=== PATIENT | female | born 1985 | race African-American/Black ===

== ENCOUNTER 2021-01-02 08:46 | Emergency (ER) | payer SELFPAY ==
--- OUTSIDE RECORDS SUMMARY | 2021-01-02 08:49 | XMS REPORT | Continuity of Care Document ---
:1985 Author Organization [facility] t Address [address] [place] [address] Care Team Providers Name Role Phone Cindy RANDOLPH S Attending Clinician Problems This patient has no known problems. Allergies, Adverse Reactions, Alerts This patient has no known allergies or adverse reactions. Medications This patient has no known medications. Procedures This patient has no known procedures. Encounters Start End Encounter Admission Attending Care Care Encounter Source Date/Time Date/Time Type Type Clinicians Facility Department ID 2020-05-20 2020-05-20 Emergency [facility] [id number] 01:49:00 01:51:00 Eladio Reese [id number] [place] [id number] [place] [id number] Results This patient has no known results.
[2021-01-02 09:35] LABS: Urine Blood 2+ (NEG); Urine Glucose NEGATIVE (NEG); Urine Protein TRACE (NEG); Urine Specific Gravity 1.025 (1.005-1.030); Urine pH 6.5 (5.0-7.0)
[2021-01-02] MEDS ORDERED: ALPRAZOLAM 0.5 MG TABLET ONE (10:38)
--- NOTE | 2021-01-02 11:44 | EDPHYS ---
Physician Documentation [facility] Name: Leigh Bryan Age: 35 yrs Sex: Female : 1985 Arrival Date: 01/02/2021 Time: 08:49 Bed 5 Private MD: ED Physician Gonzalez Lemus HPI: 01/02 10:17 This 35 yrs old Black Female presents to ER via Ambulatory with complaints of kb medication refill. 10:25 The patient presents to the emergency department requesting refill(s) for: Xanax, kb Zoloft, ibuprofen, zofran. The patient chronically suffers from bipolar disorder. The patient has experienced similar episodes in the past, chronically. The patient has not recently seen a physician. Pt reports she has been off of her meds for a few weeks and she needs to get back on them. States "my body and mind aren't right because I haven't had my medicine." Pt reports frequent panic attacks lately. Pt also requests a test because she has been sexually active and her vagina is sore. . Historical: - Allergies: 08:55 No Known Allergies; sv - PMHx: 08:55 Bipolar disorder; PTSD; Schizophrenia; sv - PSHx: 08:55 None; sv - Immunization history:: Adult Immunizations up to date. - Social history:: Smoking status: Patient reports the use of cigarette tobacco products, smokes one-half pack cigarettes per day. ROS: 10:30 Constitutional: Negative for fever, chills, and weight loss, Cardiovascular: Negative kb for chest pain, palpitations, and edema, Respiratory: Negative for shortness of breath, cough, wheezing, and pleuritic chest pain, MS/Extremity: Negative for injury and deformity, Skin: Negative for injury, rash, and discoloration, Neuro: Negative for headache, weakness, numbness, tingling, and seizure. 10:30 Abdomen/GI: Positive for nausea, Negative for abdominal pain, vomiting, diarrhea. 10:30 Psych: Positive for anxiety, depression, Negative for auditory hallucinations, visual hallucinations, homicidal ideation, suicide gesture, suicidal ideation. Exam: 10:31 Constitutional: This is a well developed, well nourished patient who is awake, alert, kb and in no acute distress. Head/Face: Normocephalic, atraumatic. Cardiovascular: Regular rate and rhythm with a normal S1 and S2. No gallops, murmurs, or rubs. No pulse deficits. Respiratory: Respirations even and unlabored. No increased work of breathing, no retractions or nasal flaring. Abdomen/GI: Soft, non-tender. No distention Skin: Warm, dry with normal turgor. Normal color. MS/ Extremity: Pulses equal, no cyanosis. Neurovascular intact. Full, normal range of motion. Neuro: Awake and alert, GCS 15, oriented to person, place, time, and situation. Moves all extremities. Normal gait. 10:31 Constitutional: The patient appears anxious. 10:31 Psych: Behavior/mood is cooperative, anxious, Affect is animated, Oriented to person, place, time, Patient has no thoughts/intents to harm self or others. Judgement / Insight is normal. Memory is normal. Delusions/hallucinations are not present. Vital Signs: 08:55 BP 147 / 100; Pulse 65; Resp 16; Temp 98.2; Pulse Ox 100% ; Height 5 ft. 7 in. (170.18 sv cm); MDM: 09:59 Patient medically screened. kb 10:28 Data reviewed: vital signs, nurses notes. Data interpreted: Pulse oximetry: on room air kb is 100 %. Interpretation: normal. Counseling: I had a detailed discussion with the patient and/or guardian regarding: the historical points, exam findings, and any diagnostic results supporting the discharge/admit diagnosis, the need for outpatient follow up, a family practitioner, a psychiatrist, to return to the emergency department if symptoms worsen or persist or if there are any questions or concerns that arise at home. 01/02 09:08 Order name: Urine Dipstick--Ancillary (enter results); Complete Time: 09:49 sv 01/02 09:08 Order name: Urine --Ancillary (enter results); Complete Time: 09:49 sv 01/02 09:03 Order name: Urine Test (obtain specimen); Complete Time: 09:08 kb 01/02 09:03 Order name: Urine Dipstick-Ancillary (obtain specimen); Complete Time: 09:08 kb 01/02 10:17 Order name: Misc. Order: Find out what dose of Zoloft pt normally takes. Pt has used kb [facility], [facility] and [place] in the past; Complete Time: 10:43 Administered Medications: 10:22 Drug: XANax (alprazolam) Tablet 0.5 mg Route: PO; tw2 12:28 Follow up: Response: No adverse reaction tw2 Disposition: 01/03 08:10 Co-signature as Attending Physician, Gonzalez Lemus MD I agree with the assessment and kdr plan of care. Disposition: 01/02/21 11:44 Discharged to Home. Impression: Encounter for issue of repeat prescription. - Condition is Stable. - Discharge Instructions: Medicine Refill at the Emergency Department. - Prescriptions for Xanax 0.5 mg Oral Tablet - take 1 tablet by ORAL route every 8 hours As needed; 6 tablet. Zoloft 50 mg Oral Tablet - take 1 tablet by ORAL route once daily; 20 tablet. - Medication Reconciliation Form, Thank You Letter, Antibiotic Education, Prescription Opioid Use form. - Follow up: Emergency Department; When: As needed; Reason: Worsening of condition. Follow up: Private Physician; When: 2 - 3 days; Reason: Recheck today's complaints, Continuance of care, Re-evaluation by your physician. Follow up: Roberto Waters MD; When: 2 - 3 days; Reason: Recheck today's complaints. Signatures: Dispatcher [employer] EDMS Doris Wilkes, JOSAFAT MERAZ-Juhi Freed, RN RN Gonzalez Richards MD MD [facility] Zara Juan RN RN tw2 Corrections: (The following items were deleted from the chart) 01/02 10:30 10:25 Pt reports she has been off of her meds for a few weeks and she needs to get back kb on them. States "my body and mind aren't right because I haven't had my medicine." Pt reports frequent panic attacks lately. . kb 11:46 11:44 01/02/2021 11:44 Discharged to Home. Impression: Encounter for issue of repeat kb prescription. Condition is Stable. Forms are Medication Reconciliation Form, Thank You Letter, Antibiotic Education, Prescription Opioid Use. Follow up: Emergency Department; When: As needed; Reason: Worsening of condition. Follow up: Private Physician; When: 2 - 3 days; Reason: Recheck today's complaints, Continuance of care, Re-evaluation by your physician. kb 12:29 11:46 01/02/2021 11:44 Discharged to Home. Impression: Encounter for issue of repeat tw2 prescription. Condition is Stable. Discharge Instructions: Medicine Refill at the Emergency Department. Prescriptions for Xanax 0.5 mg Oral Tablet - take 1 tablet by ORAL route every 8 hours As needed; 6 tablet, Zoloft 50 mg Oral Tablet - take 1 tablet by ORAL route once daily; 20 tablet. and Forms are Medication Reconciliation Form, Thank You Letter, Antibiotic Education, Prescription Opioid Use. Follow up: Emergency Department; When: As needed; Reason: Worsening of condition. Follow up: Private Physician; When: 2 - 3 days; Reason: Recheck today's complaints, Continuance of care, Re-evaluation by your physician. Follow up: Roberto Waters; When: 2 - 3 days; Reason: Recheck today's complaints. kb
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
[2021-01-02 12:36] VITALS: BP 147/100; TEMP 98.2; O2SAT 100
== END 2021-01-02 12:29 | disposition home or self-care (01) ==
LOC: ER 08:46
DX: Z76.0 Encounter for issue of repeat prescription (principal)
CPT/HCPCS: 81003; 81025; 99283

== ENCOUNTER 2023-02-26 17:49 | Emergency (ER) | payer OTHER, SELFPAY ==
[2023-02-26] MEDS ORDERED: NA CHLORIDE 0.9% 1,000 ML ONE (18:19)
[2023-02-26 18:32] LABS: Hematocrit 35.3 % (36.0-45.0); MCV 79.4 fL (80-100); RBC Red Blood Cell Count 4.45 M/uL (3.86-4.86)
--- OUTSIDE RECORDS SUMMARY | 2023-02-26 18:43 | XMS REPORT | Continuity of Care Document ---
:1985 Author Organization [facility] t Address [address] [place] [address] [address] [place] [address] Care Team Providers Name Role Phone Pcp, Patient Does Not Have A Primary Care Physician +[id number] JANET KIM Attending Clinician Unavailable Janet Kim MD Attending Clinician Doctor Unassigned, [place] Attending Clinician Unavailable Eladio Gibbs MD Attending Clinician ELADIO GIBBS Attending Clinician Unavailable JANET KIM Admitting Clinician Unavailable Janet Kim MD Admitting Clinician Payers Payer Name Policy Type Policy Number Effective Date Expiration Date Count includes the [facility] [id number] 2023 [facility] STAR 00:00:00 Problems Condition Condition Condition Status Onset Resolution Last Treating Co mments Source Name Details Category Date Date Treatment Clinician Date Disease Active Overview: Un sae delivery delivery 4- Formatt[place] ity of delivered delivered 00:00[place] 00 note Medical might be Branch different from the original. ICD10 Diagnosis Term Track Announcer Utility Disease Active Overview: Un sae delivery delivery 4-04 Formattin ity of delivered delivered 00:00: [place] of this [place] 00 note Medical might be Branch different from the original. ICD10 Diagnosis Term Track Announcer Utility Threatened Threatened Disease Active U nivers premature premature 3-05 ity of labor, labor, 00:00: [place] antepartum antepartum 00 Me dical (644.03) (644.03) Branch Allergies, Adverse Reactions, Alerts Allergy Allergy Status Severity Reaction(s) Onset Inactive Treating Comm ents Source Name Type Date Date Clinician NALBUPHI DRUG Active Rash Univers NE HCL INGREDI 4-03 ity of 00:00: [place] 00 Medical Branch SULFA Drug Active Rash Univers (SULFONA Class 4-03 ity of MIDE 00:00: [place] ANTIBIOT 00 Medical ICS) Branch Sulfa Propensi Active Rash Univers (Sulfona ty to 4-03 ity of mide adverse 00:00: [place] Antibiot reaction 00 Medica l ics) s Branch Nalbuphi Propensi Active Rash Univer s ne Hcl ty to 4-03 ity of adverse 00:00: [place] reaction 00 Medical s Branch Sulfa Propensi Active Rash Univers (Sulfona ty to 4-03 ity of mide adverse 00:00: [place] Antibiot reaction 00 Medica l ics) s Branch Metronid Propensi Active Itching Unive rs azole ty to 3-07 ity of adverse 00:00: [place] reaction 00 Medical s to Branch drug METRONID DRUG Active High Hives Univers AZOLE INGREDI 3-07 ity of 00:00: [place] 00 Medical Branch Social History Social Habit Start Date Stop Date Quantity Comments Source Exposure to Unable to assess Univers ity of SARS-CoV-2 [place] [facility] (event) Branch Sex Ass[birth year] At [birth year] Universit y of 00:00:00 00:00:00 [place] [facility] Smoking Status Start Date Stop Date Source Tobacco smoking consumption [facility] unknown Branch Medications Ordered Filled Start Stop Current Ordering Indication Dosage Frequency Signature Comments Components Source Medication Medication Date Date Medication? Clinician (SIG) Name Name Yes Take one Unive rs VIT-FA ORAL 4-05 tablet by ity of TAB 00:00: mouth 00 daily Medical Branch DOCUSATE Yes Take one Unive rs CALCIUM 240 4-05 capsule by it y of MG ORAL CAP 00:00: mouth daily as Medical needed for Branch constipati on FERROUS Yes Take one Univer s SULFATE 325 4-05 tablet by ity of MG (65 MG 00:00: mouth [place] IRON) ORAL 00 three Medical TAB times Branch daily ACETAMINOPH Yes Take one Un sae EN-CODEINE 4-05 to two ity of 300-30 MG 00:00: [place] ORAL TAB 00 mouth Medical every six Branch hours as needed for pain IBUPROFEN Yes Take one Univ ers 600 MG ORAL 4-05 tablet by ity of TAB 00:00: mouth [place] 00 every six Medical hours as Branch needed for pain Yes Take one Unive rs VIT-FA ORAL 4-05 tablet by ity of TAB 00:00: mouth [place] 00 daily Medical Branch DOCUSATE Yes Take one Unive rs CALCIUM 240 4-05 capsule by it y of MG ORAL CAP 00:00: mouth [place] 00 daily as Medical needed for Branch constipati on FERROUS Yes Take one Univer s SULFATE 325 4-05 tablet by ity of MG (65 MG 00:00: mouth [place] IRON) ORAL 00 three Medical TAB times Branch daily ACETAMINOPH Yes Take one Un sae EN-CODEINE 4-05 to two ity of 300-30 MG 00:00: tablets by [place] ORAL TAB 00 mouth Medical every six Branch hours as needed for pain IBUPROFEN Yes Take one Univ ers 600 MG ORAL 4-05 tablet by ity of TAB 00:00: mouth [place] 00 every six Medical hours as Branch needed for pain Yes Take one Unive rs VIT-FA ORAL 4-05 tablet by ity of TAB 00:00: mouth [place] 00 daily Medical Branch DOCUSATE Yes Take one Unive rs CALCIUM 240 4-05 capsule by it y of MG ORAL CAP 00:00: mouth [place] 00 daily as Medical needed for Branch constipati on FERROUS Yes Take one Univer s SULFATE 325 4-05 tablet by ity of MG (65 MG 00:00: mouth [place] IRON) ORAL 00 three Medical TAB times Branch daily ACETAMINOPH Yes Take one Un sae EN-CODEINE 4-05 to two ity of 300-30 MG 00:00: tablets by [place] ORAL TAB 00 mouth Medical every six Branch hours as needed for pain IBUPROFEN Yes Take one Univ ers 600 MG ORAL 4-05 tablet by ity of TAB 00:00: mouth [place] 00 every six Medical hours as Branch needed for pain Yes Take one Unive rs VIT-FA ORAL 4-05 tablet by ity of TAB 00:00: mouth [place] 00 daily Medical Branch DOCUSATE Yes Take one Unive rs CALCIUM 240 4-05 capsule by it y of MG ORAL CAP 00:00: mouth [place] 00 daily as Medical needed for Branch constipati on FERROUS Yes Take one Univer s SULFATE 325 4-05 tablet by ity of MG (65 MG 00:00: mouth [place] IRON) ORAL 00 three Medical TAB times Branch daily ACETAMINOPH Yes Take one Un sae EN-CODEINE 4-05 to two ity of 300-30 MG 00:00: tablets by [place] ORAL TAB 00 mouth Medical every six Branch hours as needed for pain IBUPROFEN Yes Take one Univ ers 600 MG ORAL 4-05 tablet by ity of TAB 00:00: mouth [place] 00 every six Medical hours as Branch needed for pain Vital Signs Vital Name Observation Time Observation Value Comments Source Systolic blood 2023-02-19 19:45:00 130 mm[Hg] Univer sity of pressure [facility] Diastolic blood 2023-02-19 19:45:00 83 mm[Hg] Unive rsity of pressure [facility] Heart rate 2023-02-19 19:45:00 95 /min [facility] Body temperature 2023-02-19 19:45:00 36.72 Ivon [facility] Respiratory rate 2023-02-19 19:45:00 17 /min [facility] Body height 2023-02-19 19:45:00 170.2 cm [facility] Body weight 2023-02-19 19:45:00 90.719 kg [facility] BMI 2023-02-19 19:45:00 31.32 kg/m2 [facility] Oxygen saturation in 2023-02-19 19:45:00 100 /min [facility] Arterial blood by [facility] Pulse oximetry Branch Procedures Procedure Date / Time Performing Clinician Source Performed AUTHORIZATION FOR 2022-09-04 06:01:00 Doctor Unassigned, No Univ [facility] RELEASE OF PHI Name Medical Branch Encounters Start End Encounter Admission Attending Care Care Encounter Source Date/Time Date/Time Type Type Clinicians Facility Department ID 2023-02-19 2023-02-19 Outpatient P JANET KIM [facility] KISHAN [id number] Univers 14:32:00 17:45:00 ity of [facility] 2023-02-19 2023-02-19 Hospital Janet Kim [facility] [id number] Univers 14:32:00 17:45:00 Encounter Cam [place] [id number] ity of [facility] [id number] [facility] [id number] [place] [id number] [place] 2022-09-04 2022-09-04 Orders Doctor MARÍA [id number] Univers 00:00:00 00:00:00 Only Unassigned, ASHU [id number] [place] [facility] [id number] [place] [id number] [place] [address] Branch 2020-05-20 2020-05-20 Emergency [facility] [id number] Univers 01:49:00 01:51:00 Eladio [place] [id number] ity of [place] [id number] [facility] [id number] [place] [id number] Branch 2020-05-20 2020-05-20 Emergency [facility] [id number] 01:49:00 01:51:00 Eladio S [place] [id number] [place] [id number] [place] [id number] [facility] 2020-05-20 2020-05-20 Emergency X [facility] ERT [id number] Univers 01:32:00 01:32:00 NAYLALI ity of [facility] Results This patient has no known results.
[2023-02-26 18:44] LABS: Specific Gravity > 1.030 (1.005-1.030); Urine Bacteria None Seen /HPF (<20); Urine Bilirubin NEGATIVE (Negative); Urine Blood Negative (Negative); Urine Clarity Turbid (Clear); Urine Color Yellow (Yellow); Urine Glucose NEGATIVE (Negative); Urine Mucus 4+ /HPF (None Seen); Urine Protein 1+ (Negative); Urine Urobilinogen 2+ (Normal)
[2023-02-26 18:46] LABS: BUN Blood Urea Nitrogen 9 mg/dL (7-18); Bicarbonate 27 mEq/L (21-32); Glomerular Filtration Rate 78 ml/min (=/>90); Glucose Level 100 mg/dL (74-106); Potassium 3.3 mEq/L (3.5-5.1); Sodium Level 140 mEq/L (136-145)
[2023-02-26 19:14] LABS: HCG, Quantitative < 1 mIU/mL (1-3)
--- NOTE | 2023-02-26 19:53 | RAD REPORT ---
EXAM DESCRIPTION: US - Matter Eval Tm 1 - 02/26/2023 7:39 pm CLINICAL HISTORY: vag bleeding COMPARISON: <Comparisons> FINDINGS: No IUP is visualized. Moderate-size anterior uterine fibroid. Neither ovary well seen due to bowel gas. No pelvic ascites.
--- NOTE | 2023-02-26 19:55 | EDPHYS ---
Physician Documentation [facility] Name: Leigh Bryan Age: 37 yrs Sex: Female : 1985 Arrival Date: 02/26/2023 Time: 17:49 Bed 7 Private MD: ED Physician Wallace Arce HPI: 02/26 18:49 This 37 yrs old Black Female presents to ER via EMS with complaints of Vaginal rt Bleeding, Abdominal Pain. 18:49 Presents to the ED with reported vaginal bleeding, syncopal episode. The patient was rt seen in [place] 2 days ago for vaginal bleeding, stated that she lost one of her twins, with 1 heartbeat on #1. Bleeding has been persistent since then. She reports abdominal cramping but denies other acute complaints at this time. Symptoms are moderate in severity, no other aggravating or alleviating factors.. 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 Flu vaccine is not up to date. - Social history:: Smoking status: Patient reports the use of cigarette tobacco products. - Family history:: not pertinent. ROS: 18:49 Constitutional: Negative for fever, chills, and weight loss, Cardiovascular: Negative rt for chest pain, palpitations, and edema, Respiratory: Negative for shortness of breath, cough, wheezing, and pleuritic chest pain, Abdomen/GI: Negative for abdominal pain, nausea, vomiting, diarrhea, and constipation, Skin: Negative for injury, rash, and discoloration, Psych: Negative for depression, anxiety, suicide ideation, homicidal ideation, and hallucinations. 18:49 Back: 18:49 : Positive for foul smelling urine, Negative for burning with urination. 18:49 Neuro: Positive for syncope, Negative for altered mental status. Exam: 18:49 Constitutional: This is a well developed, well nourished patient who is awake, alert, rt and in no acute distress. Head/Face: Normocephalic, atraumatic. Chest/axilla: Normal chest wall appearance and motion. Nontender with no deformity. No lesions are appreciated. Cardiovascular: Regular rate and rhythm with a normal S1 and S2. No gallops, murmurs, or rubs. Normal PMI, no JVD. No pulse deficits. Respiratory: Lungs have equal breath sounds bilaterally, clear to auscultation and percussion. No rales, rhonchi or wheezes noted. No increased work of breathing, no retractions or nasal flaring. Abdomen/GI: Soft, non-tender, with normal bowel sounds. No distension or tympany. No guarding or rebound. No evidence of tenderness throughout. Skin: Warm, dry with normal turgor. Normal color with no rashes, no lesions, and no evidence of cellulitis. MS/ Extremity: Pulses equal, no cyanosis. Neurovascular intact. Full, normal range of motion. Neuro: Awake and alert, GCS 15, oriented to person, place, time, and situation. Cranial nerves II-XII grossly intact. Motor strength 5/5 in all extremities. Sensory grossly intact. Cerebellar exam normal. Normal gait. Psych: Awake, alert, with orientation to person, place and time. Behavior, mood, and affect are within normal limits. 18:58 ECG was reviewed by the Attending Physician. rt Vital Signs: 17:54 BP 135 / 81; Pulse 95; Resp 18 S; Temp 98.8(O); Pulse Ox 98% on R/A; Weight 93.89 kg kc6 (M); Height 5 ft. 7 in. (R); Pain 8/10; 19:00 BP 131 / 89; Pulse 93; Resp 17; Pulse Ox 99% ; jj7 20:00 BP 127 / 76; Pulse 89; Resp 20; Pulse Ox 100% ; jj7 17:54 Body Mass Index 32.42 (93.89 kg, 170.18 cm) [facility] 17:54 Pain Scale: Adult kc6 MDM: 17:54 Patient medically screened. rt 20:11 Differential diagnosis: Menstruation, dysmenorrhea, threatened , ectopic rt . Data reviewed: vital signs, nurses notes, lab test result(s), radiologic studies. Counseling: I had a detailed discussion with the patient and/or guardian regarding: the historical points, exam findings, and any diagnostic results supporting the discharge/admit diagnosis, lab results, the need for outpatient follow up, Beta-hCG is negative essentially ruling out threatened , ectopic . Patient instructed to follow-up with EDUCATION RESEARCH ANALYST as an outpatient.. 02/26 18:02 Order name: Abo/rh Typing rt 02/26 18:02 Order name: Basic Metabolic Panel rt 02/26 18:02 Order name: CBC with Diff rt 02/26 18:02 Order name: Quantitative Hcg rt 02/26 18:02 Order name: Urinalysis w/ reflexes rt 02/26 18:38 Order name: CBC with Automated Diff; Complete Time: 19:10 EDMS 02/26 18:45 Order name: Urinalysis w/ reflexes; Complete Time: 19:10 EDMS 02/26 19:04 Order name: ABO/RH typing; Complete Time: 19:10 EDMS 02/26 19:14 Order name: Basic Metabolic Panel; Complete Time: 19:47 EDMS 02/26 19:14 Order name: HCG, Quantitative; Complete Time: 19:47 EDMS 02/26 19:41 Order name: Matter Eval Tm 1; Complete Time: 19:54 EDMS 02/26 18:02 Order name: EKG; Complete Time: 18:03 rt 02/26 18:02 Order name: IV Saline Lock; Complete Time: 18:11 rt 02/26 18:02 Order name: Labs collected and sent; Complete Time: 18:21 rt 02/26 18:02 Order name: NPO; Complete Time: 18:11 rt 02/26 18:02 Order name: EKG - Nurse/Tech; Complete Time: 18:56 rt EC:58 Rate is 93 beats/min. Rhythm is regular, Normal Sinus Rhythm with No ectopy. QRS [place] rt is Normal. OR interval is normal. QRS interval is normal. QT interval is normal. No Q waves. T waves are Normal. No ST changes noted. Administered Medications: 18:21 Drug: NS 0.9% IV 1000 ml Route: IV; Rate: 1 bolus; Site: left antecubital; kc6 18:58 Follow up: Response: No adverse reaction; IV Status: Completed infusion; IV Intake: kc6 1000ml Disposition Summary: 02/26/23 19:54 Discharge Ordered Location: Home rt Problem: new rt Symptoms: are unchanged rt Condition: Stable rt Diagnosis - Vaginal bleeding rt Followup: rt - With: Private Physician - When: 2 - 3 days - Reason: Discharge Instructions: - Discharge Summary Sheet rt - Menstruation rt Forms: - Medication Reconciliation Form rt - Thank You Letter rt - Antibiotic Education rt - Prescription Opioid Use rt Signatures: Dispatcher [employer] Michelle Awad RN RN kc6 Wallace Arce MD MD rt Corrections: (The following items were deleted from the chart) 19:41 18:03 OB Limited+US.RAD.BRZ ordered. EDNE EDMS
--- NOTE | 2023-02-26 19:55 | ER ---
Nurse's Notes [facility] Name: Leigh Bryan Age: 37 yrs Sex: Female : 1985 Arrival Date: 02/26/2023 Time: 17:49 Bed 7 Private MD: Diagnosis: Vaginal bleeding Presentation: 02/26 17:54 Chief complaint: EMS states: pt is currently 17w with twins. pt was at [address] yesterday for vaginal bleeding and [facility] for threatened . pt reports increased vaginal bleeding, abd pain, and syncope x2hrs. BGL en route 146. Coronavirus screen: Vaccine status: Patient reports being unvaccinated. At this time, the client does not indicate any symptoms associated with coronavirus-19. Ebola Screen: No symptoms or risks identified at this time. Initial Sepsis Screen: Does the patient meet any 2 criteria? No. Patient's initial sepsis screen is negative. Does the patient have a suspected source of infection? No. Patient's initial sepsis screen is negative. Risk Assessment: Do you want to hurt yourself or someone else? Patient reports no desire to harm self or others. Onset of symptoms was February 26, 2023. 17:54 Method Of Arrival: EMS: [facility] 17:54 Acuity: STUART 3 kc6 Triage Assessment: 17:56 General: Appears in no apparent distress. uncomfortable, Behavior is calm, cooperative, kc6 appropriate for age, crying. Pain: Complains of pain in right lower quadrant and left lower quadrant Pain does not radiate. Pain currently is 8 out of 10 on a pain scale. Quality of pain is described as crampy, Pain began 2 hours ago. Is continuous, Alleviated by nothing. Noted to be crying, guarding, resistant to movement, Also complains of no other associated symptoms. EENT: No signs and/or symptoms were reported regarding the EENT system. Neuro: [place]nelas Agitation-Sedation Scale (RASS): 0 - Alert and Calm Level of Consciousness is awake, alert, obeys commands, Oriented to person, place, time, situation, Appropriate for age. Cardiovascular: Capillary refill < 3 seconds. Respiratory: Airway is patent Trachea midline Respiratory effort is even, unlabored, Respiratory pattern is regular, symmetrical. GI: No signs and/or symptoms were reported involving the gastrointestinal system. : Reports vaginal bleeding that is bright red, with clots, moderate flow. Derm: No signs and/or symptoms reported regarding the dermatologic system. Skin is intact, Skin is pink, warm \T\ dry. Musculoskeletal: No signs and/or symptoms reported regarding the musculoskeletal system. Circulation, motion, and sensation intact. Capillary refill < 3 seconds, Range of motion: intact in all extremities. 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 Flu vaccine is not up to date. - Social history:: Smoking status: Patient reports the use of cigarette tobacco products. - Family history:: not pertinent. Screenin:59 [facility] ED Fall Risk Assessment (Adult) History of falling in the last 3 months, kc6 including since admission No falls in past 3 months (0 pts) Confusion or Disorientation No (0 pts) Intoxicated or Sedated No (0 pts) Impaired Gait No (0 pts) Mobility Assist Device Used No (0 pt) Altered Elimination No (0 pt) Score/Fall Risk Level 0 - 2 = Low Risk Oriented to surroundings, Maintained a safe environment, Educated pt \T\ family on fall prevention, incl call for assistance when getting out of bed, Assessed \T\ reinforced patient's understanding of fall precautions, Hourly rounding (assess needs \T\ fall precautionary measures) done. Abuse screen: Denies threats or abuse. Denies injuries from another. Nutritional screening: No deficits noted. Tuberculosis screening: No symptoms or risk factors identified. Assessment: 17:59 Reassessment: please see triage assessment. kc6 18:45 Reassessment: Patient appears in no apparent distress at this time. No changes from kc6 previously documented assessment. Patient and/or family updated on plan of care and expected duration. Pain level reassessed. Patient is alert, oriented x 3, equal unlabored respirations, skin warm/dry/pink. Vital Signs: 17:54 BP 135 / 81; Pulse 95; Resp 18 S; Temp 98.8(O); Pulse Ox 98% on R/A; Weight 93.89 kg kc6 (M); Height 5 ft. 7 in. (R); Pain 8/10; 19:00 BP 131 / 89; Pulse 93; Resp 17; Pulse Ox 99% ; jj7 20:00 BP 127 / 76; Pulse 89; Resp 20; Pulse Ox 100% ; jj7 17:54 Body Mass Index 32.42 (93.89 kg, 170.18 cm) kc6 17:54 Pain Scale: Adult kc6 ED Course: 17:54 Patient arrived in ED. kc6 17:54 Wallace Arce MD is Attending Physician. rt 17:56 Triage completed. kc6 17:56 Arm band placed on. kc6 17:59 Patient has correct armband on for positive identification. Bed in low position. Call kc6 light in reach. Side rails up X2. 17:59 Maintain EMS IV. Dressing intact. Good blood return noted. Site clean \T\ dry. Gauge \T\ allen 6 site: 20G LAC. 18:11 Michelle Aguilar, RN is Primary Nurse. kc6 18:24 Abo/rh Typing Sent. kc6 18:24 Basic Metabolic Panel Sent. kc6 18:24 CBC with Diff Sent. kc6 18:24 Quantitative Hcg Sent. kc6 18:24 Urinalysis w/ reflexes Sent. kc6 18:58 EKG done, by ED staff, reviewed by Wallace Arce MD. em1 19:41 Matter Eval Tm 1 In Process Unspecified. EDMS 20:15 No provider procedures requiring assistance completed. IV discontinued, intact, jj7 bleeding controlled, No redness/swelling at site. Pressure dressing applied. Administered Medications: 18:21 Drug: NS 0.9% IV 1000 ml Route: IV; Rate: 1 bolus; Site: left antecubital; kc6 18:58 Follow up: Response: No adverse reaction; IV Status: Completed infusion; IV Intake: kc6 1000ml Medication: 20:15 VIS not applicable for this client. jj7 Intake: 18:58 IV: 1000ml; Total: 1000ml. kc6 Outcome: 19:54 Discharge ordered by MD. rt 20:15 Discharged to home ambulatory. jj7 20:15 Condition: stable 20:15 Discharge instructions given to patient, Instructed on discharge instructions, follow up and referral plans. Demonstrated understanding of instructions, follow-up care. 20:16 Patient left the ED. kl Signatures: Dispatcher [employer] Zee Foster RN RN kl Martinez, Eric em1 Michelle Aguilar RN RN kc6 Audie Murry RN RN jj7 Wallace Arce MD MD rt
[2023-02-26 20:30] VITALS: BP 135/81; TEMP 98.8; O2SAT 98
== END 2023-02-26 20:16 | disposition home or self-care (01) ==
LOC: ER 17:49 → EDSTATUS 18:40 → ER 20:16
DX: N93.9 Abnormal uterine and vaginal bleeding, unspecified (principal); R55 Syncope and collapse; Z72.0 Tobacco use; Z88.0 Allergy status to penicillin; Z88.1 Allergy status to other antibiotic agents; Z88.5 Allergy status to narcotic agent; Z88.8 Allergy status to other drugs, medicaments and biological substances
CPT/HCPCS: 85025; 81001; 80048; 36415; 86900; 86901; 84702; 76801; J7030

== ENCOUNTER 2024-10-23 13:33 | Emergency (ER) | payer OTHER, SELFPAY ==
--- OUTSIDE RECORDS SUMMARY | 2024-10-23 13:36 | XMS REPORT | Continuity of Care Document ---
Author Name Unknown Address [address] [place] [address] [facility] thconnect Address [address] [place] [address] Care Team Providers Care Confectionery Laboratory Manager Name Role Phone Pcp, Patient Does Not Have A Primary Care Physic stella JANET KIM Attending Clinician Unavailable Janet Kim MD Attending Clinician [phone] Doctor Unassigned, [place] Attending Clinician U Eladio Adamson MD Attending Clinician [phone] ELADIO GIBBS Attending Clinician Unavailable JANET KIM Admitting Clinician Unavailable Janet Kim MD Admitting Clinician Payers Payer Name Policy Type Policy Number Effective Date Expirati on Date Source [facility] [id number] 2023 00:00:00 Problems Condition Name Condition Details Condition Category Status Onset Date Resolution Date Last Treatment Date Treating Clinician Comments Source delivery delivered delivery delivered Disease Active 01-21 00:00: 00 Overview: Formattin g of this note might be different from the original. ICD10 Diagnosis Term Mobile Home Technician Utility [facility] delivery delivered delivery delivered Disease Active 01-21 00:00: 00 Overview: Formattin g of this note might be different from the original. ICD10 Diagnosis Term Mobile Home Technician Utility [facility] Threatened premature labor, antepartum (644.03) Threatened premature labor, antepartum (644.03) Disease Active 12-22 00:00: 00 [facility] Allergies, Adverse Reactions, Alerts Allergy Name Allergy Type Status Severity Reaction(s) Onset Date Inactive Date Treating Clinician Comments Source NALBUPHI NE HCL DRUG INGREDI Active Rash 01-20 00:00: 00 [facility] SULFA (SULFONA MIDE ANTIBIOT ICS) Drug Class Active Rash 01-20 00:00: 00 [facility] Sulfa (Sulfona mide Antibiot ics) Propensi ty to adverse reaction s Active Rash 01-20 00:00: 00 [facility] Nalbuphi ne Hcl Propensi ty to adverse reaction s Active Rash 01-20 00:00: 00 [facility] Sulfa (Sulfona mide Antibiot ics) Propensi ty to adverse reaction s Active Rash 01-20 00:00: 00 [facility] Metronid azole Propensi ty to adverse reaction s to drug Active Itching 12-24 00:00: 00 [facility] METRONID AZOLE DRUG INGREDI Active High Hives 12-24 00:00: 00 [facility] Social History Social Habit Start Date Stop Date Quantity Comments Source Exposure to SARS-CoV-2 (event) Unable to assess [facility] Sex Assigned At 1985 00:00:00 1985 00[birth year]00[birth year]00 [facility] Smoking Status Start Date Stop Date Source Tobacco smoking consumption unknown [facility] Medications Ordered Medication Name Filled Medication Name Start Date Stop Date Current Medication? Ordering Clinician Indication Dosage Frequency Signature (SIG) Comments Components Source VIT-FA ORAL TAB 01-22 00:00: 00 Yes Take one tablet by mouth daily [facility] DOCUSATE CALCIUM 240 MG ORAL CAP 01-22 00:00: 00 Yes Take one capsule by mouth daily as needed for constipati on [facility] FERROUS SULFATE 325 MG (65 MG IRON) ORAL TAB 01-22 00:00: 00 Yes Take one tablet by mouth three times daily [facility] ACETAMINOPH EN-CODEINE 300-30 MG ORAL TAB 01-22 00:00: 00 Yes Take one to two tablets by mouth every six hours as needed for pain [facility] IBUPROFEN 600 MG ORAL TAB 01-22 00:00: 00 Yes Take one tablet by mouth every six hours as needed for pain [facility] Vital Signs Vital Name Observation Time Observation Value Comments S melchor Systolic blood pressure 2023-02-19 19:45:00 130 mm[Hg] [facility] Diastolic blood pressure 2023-02-19 19:45:00 83 mm[Hg] [facility] acute hospital Heart rate 2023-02-19 19:45:00 95 /min [facility] Body temperature 2023-02-19 19:45:00 36.72 Ivon [facility] Respiratory rate 2023-02-19 19:45:00 17 /min [facility] Body height 2023-02-19 19:45:00 170.2 cm [facility] Body weight 2023-02-19 19:45:00 90.719 kg [facility] BMI 2023-02-19 19:45:00 31.32 kg/m2 [facility] Oxygen saturation in Arterial blood by Pulse oximetry 2023-02-19 19:45:00 100 /min [facility] acute hospital Procedures Procedure Date / Time Performed Performing Clinician Source AUTHORIZATION FOR RELEASE OF PHI 2022-09-04 06:01:00 Doctor Unassigned, [place] [facility] Encounters Start Date/Time End Date/Time Encounter Type Admission Type Attending Clinicians Care Facility Care Department Encounter ID Source 2023-02-19 14:32:00 2023-02-19 17:45:00 Outpatient P JANET KIM [facility] KISHAN [id number] [facility] 2023-02-19 14:32:00 2023-02-19 17:45:00 Hospital Encounter Janet Kim [facility] [id number] [facility] 2022-09-04 00:00:00 2022-09-04 00:00:00 Orders Only Doctor Unassigned, [place] [facility] [id number] [facility] 2020-05-20 01:49:00 2020-05-20 01:51:00 Emergency TiffanienickolasEladio bowser [facility] [id number] [facility] 2020-05-20 01:49:00 2020-05-20 01:51:00 Emergency Eladio Gibbs [facility] [id number] 2020-05-20 01:32:00 2020-05-20 01:32:00 Emergency X ELADIO GIBBS [facility] ERT [id number] [facility]
[2024-10-23 14:37] LABS: Specific Gravity > 1.030 (1.005-1.030); Urine Bacteria <20 /HPF (<20); Urine Bilirubin NEGATIVE (Negative); Urine Blood Negative (Negative); Urine Clarity Extremely Turbid (Clear); Urine Color Yellow (Yellow); Urine Culture Reflex Order NOT NEEDED; Urine Glucose NEGATIVE (Negative); Urine Ketones TRACE (Negative); Urine Microscopic Reflex YN ORDER UMIC; Urine Mucus 4+ /HPF (None Seen); Urine Nitrite NEGATIVE (Negative); Urine Protein 1+ (Negative); Urine RBC <5 /HPF (None Seen); Urine Urobilinogen 3+ (Normal); Urine WBC <5 /HPF (<5); Urine Yeast (Budding) Trace /HPF (None Seen); Urine pH 7.5 (5.0-7.0)
[2024-10-23 14:38] LABS: Absolute Lymphocytes (CBC) 0.7 K/uL (0.7-4.9); Absolute Monocytes 0.5 K/uL (0.1-1.3); Absolute Neutrophil 4.7 K/uL (1.8-8.0); Basophils % 0.6 % (0-1.3); Eosinophils % 0.7 % (0-4.4); Hematocrit 37.3 % (36.0-45.0); MCH 25.3 pg (27.0-35.0); MCHC 32.2 g/dL (32.0-36.0); MCV 78.6 fL (80-100); MPV 8.7 fL (7.6-11.3); Monocytes % 8.6 % (3.3-12.3); Neutrophils % 78.1 % (41.7-73.7); Nucleated Red Blood Cells % 0.1 % (0-0); Platelets 269 thou/uL (152-406); RBC Red Blood Cell Count 4.74 M/uL (3.86-4.86)
[2024-10-23 14:42] LABS: PT Prothrombin Time 12.2 SECONDS (9.4-12.5); PTT, Activated Partial Thromb 29.9 SECONDS (24.3-36.9); Protime INR 1.09
[2024-10-23 14:47] LABS: Barbiturates NEGATIVE (NEGATIVE); Benzodiazepines NEGATIVE (NEGATIVE); Cocaine NEGATIVE (NEGATIVE); METHAMPHETAM NEGATIVE (NEGATIVE); Methadone NEGATIVE (NEGATIVE); Opiates NEGATIVE (NEGATIVE); Phencyclidine NEGATIVE (NEGATIVE); THC Cannibis NEGATIVE (NEGATIVE)
[2024-10-23 14:57] LABS: ALT/SGPT 20 U/L (13-56); AST/SGOT 18 U/L (15-37); Albumin 3.4 g/dL (3.4-5.0); Albumin/Globulin Ratio 0.9 (1.1-1.8); Alkaline Phosphatase 53 U/L (45-117); Anion Gap 10.3 mEq/L (5.0-15.0); BUN Blood Urea Nitrogen 9 mg/dL (7-18); Bicarbonate 28 mEq/L (21-32); Bilirubin Direct 0.2 mg/dL (0-0.2); Bilirubin Indirect, Calculated 0.3 mg/dL (0.2-0.8); Bilirubin Total 0.5 mg/dL (0.2-1.0); Globulin 3.9 g/dL (2.3-3.5); Glomerular Filtration Rate 67 ml/min (=/>90); Glucose Level 85 mg/dL (74-106); Potassium 3.3 mEq/L (3.5-5.1); Protein, Total 7.3 g/dL (6.4-8.2); Sodium Level 140 mEq/L (136-145)
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
[2024-10-23 16:43] VITALS: BP 134/99; TEMP 98; O2SAT 99
== END 2024-10-23 16:36 | disposition home or self-care (01) ==
LOC: ER 13:33
DX: R10.84 Generalized abdominal pain (principal)
CPT/HCPCS: 36415; 80048; 80076; 80143; 80179; 80307; 81001; 81025; 82077; 85025; 85610; 85730; 99284

== ENCOUNTER 2025-07-10 17:18 | Emergency (ER) | payer SELFPAY ==
--- OUTSIDE RECORDS SUMMARY | 2025-07-10 17:20 | XMS REPORT | Continuity of Care Document ---
Author Name Unknown Address [address] [place] [address] [facility] Address [address] [place] [address] Care Team Providers Care Digital Asset Manager Name Role Phone Pcp, Patient Does Not Have A Primary Care Physic stella JANET KIM Attending Clinician Unavailable Janet Kim MD Attending Clinician [phone] Doctor Unassigned, [place] Attending Clinician U Allison Adamson MD Attending Clinician [phone] ALLISON GIBBS Attending Clinician Unavailable JANET KIM Admitting Clinician Unavailable Janet Kim MD Admitting Clinician Payers Payer Name Policy Type Policy Number Effective Date Expirati on Date Source [facility] [id number] 2023 00:00:00 Problems Condition Name Condition Details Condition Category Status Onset Date Resolution Date Last Treatment Date Treating Clinician Comments Source delivery delivered delivery delivered Disease Active 01-21 00:00: 00 Overview: Formattin g of this note might be different from the original. 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 [facility] delivery delivered delivery delivered Disease Active 01-21 00:00: 00 Overview: Formattin g of this note might be different from the original. 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 [employer] [facility] Threatened premature labor, antepartum (644.03) Threatened premature labor, antepartum (644.03) Disease Active 12-22 00:00: 00 [facility] Allergies, Adverse Reactions, Alerts Allergy Name Allergy Type Status Severity Reaction(s) Onset Date Inactive Date Treating Clinician Comments Source NALBUPHI NE HCL DRUG INGREDI Active Rash 01-20 00:00: 00 [facility] SULFA (SULFONA MIDE ANTIBIOT ICS) Drug Class Active Rash 01-20 00:00: 00 [facility] Sulfa (Sulfona mide Antibiot ics) Propensi ty to adverse reaction s Active Rash 01-20 00:00: 00 [facility] Nalbuphi ne Hcl Propensi ty to adverse reaction s Active Rash 01-20 00:00: 00 [facility] Sulfa (Sulfona mide Antibiot ics) Propensi ty to adverse reaction s Active Rash 01-20 00:00: 00 [facility] Metronid azole Propensi ty to adverse reaction s to drug Active Itching 12-24 00:00: 00 [facility] METRONID AZOLE DRUG INGREDI Active High Hives 12-24 00:00: 00 [facility] Social History Social Habit Start Date Stop Date Quantity Comments Source Exposure to SARS-CoV-2 (event) Unable to assess [facility] Sex Assigned At 1985 00:00:00 1985 00:00:00 [facility] Smoking Status Start Date Stop Date Source Tobacco smoking consumption unknown [facility] Medications Ordered Medication Name Filled Medication Name Start Date Stop Date Current Medication? Ordering Clinician Indication Dosage Frequency Signature (SIG) Comments Components Source VIT-FA ORAL TAB 01-22 00:00: 00 Yes Take one tablet by mouth daily [facility] DOCUSATE CALCIUM 240 MG ORAL CAP 01-22 00:00: 00 Yes Take one capsule by mouth daily as needed for constipati on [facility] FERROUS SULFATE 325 MG (65 MG IRON) ORAL TAB 01-22 00:00: 00 Yes Take one tablet by mouth three times daily [facility] ACETAMINOPH EN-CODEINE 300-30 MG ORAL TAB 01-22 00:00: 00 Yes Take one to two tablets by mouth every six hours as needed for pain [facility] IBUPROFEN 600 MG ORAL TAB 01-22 00:00: 00 Yes Take one tablet by mouth every six hours as needed for pain [facility] Vital Signs Vital Name Observation Time Observation Value Comments S ource Systolic blood pressure 2023-02-19 19:45:00 130 mm[Hg] [facility] Diastolic blood pressure 2023-02-19 19:45:00 83 mm[Hg] [facility] Heart rate 2023-02-19 19:45:00 95 /min [facility] Body temperature 2023-02-19 19:45:00 36.72 Ivon [facility] Respiratory rate 2023-02-19 19:45:00 17 /min [facility] Body height 2023-02-19 19:45:00 170.2 cm [facility] Body weight 2023-02-19 19:45:00 90.719 kg [facility] BMI 2023-02-19 19:45:00 31.32 kg/m2 [facility] Oxygen saturation in Arterial blood by Pulse oximetry 2023-02-19 19:45:00 100 /min [facility] Procedures Procedure Date / Time Performed Performing Clinician Source AUTHORIZATION FOR RELEASE OF PHI 2022-09-04 06:01:00 Doctor Unassigned, [place] [facility] Encounters Start Date/Time End Date/Time Encounter Type Admission Type Attending Clinicians Care Facility Care Department Encounter ID Source 2023-02-19 14:32:00 2023-02-19 17:45:00 Outpatient P JANET KIM [facility] KISHAN [id number] [facility] 2023-02-19 14:32:00 2023-02-19 17:45:00 Hospital Encounter Janet Kim [facility] [id number] [facility] 2022-09-04 00:00:00 2022-09-04 00:00:00 Orders Only Doctor Unassigned, [place] [facility] [id number] [facility] 2020-05-20 01:49:00 2020-05-20 01:51:00 Emergency DeangelonickolasTalat bowsergaston [facility] [id number] [facility] 2020-05-20 01:49:00 2020-05-20 01:51:00 Emergency Talat Gibbsgaston Kate [facility] [id number] 2020-05-20 01:32:00 2020-05-20 01:32:00 Emergency X DEANGELONICKOLASFELY BOWSERSHAWN [facility] ERT [id number] [facility]
[2025-07-10] MEDS ORDERED: TDAP (DIPHTH,PERTUSS(ACELL),TET VAC) 0.5 ML VIAL IMVAC ONE (17:57)
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
[2025-07-10] MEDS ORDERED: DOXYCYCLINE 100 MG CAP PO ONE (18:37)
[2025-07-10 20:53] VITALS: BP 122/85; TEMP 98; O2SAT 99
== END 2025-07-10 20:30 | disposition home or self-care (01) ==
LOC: ER 17:18
DX: S81.832A Puncture wound without foreign body, left lower leg, initial encounter (principal); W26.8XXA Contact with other sharp object(s), not elsewhere classified, initial encounter; Y93.9 Activity, unspecified; Y92.9 Unspecified place or not applicable; Z23 Encounter for immunization; Z88.0 Allergy status to penicillin; Z88.5 Allergy status to narcotic agent; Z88.1 Allergy status to other antibiotic agents; Z88.8 Allergy status to other drugs, medicaments and biological substances
CPT/HCPCS: 81025; 90715; 96372; 99285